=== PATIENT | male | born 1945 | race Caucasian/White ===

== ENCOUNTER 2018-11-15 12:19 | Emergency (ER) | payer OTHER ==
[~2018-11-15] VITALS: Ht 180.3 cm; Wt 85.0 kg
[2018-11-15] MEDS ORDERED: OXYC-517 PO (12:29)
[2018-11-15] MEDS ORDERED: SPIR1CAP INH (12:29)
[2018-11-15] MEDS ORDERED: PROAAER10 INH (12:29)
[2018-11-15] MEDS ORDERED: PRED1TABL PO (12:29)
[2018-11-15] MEDS ORDERED: ASPI1TAB15 PO (12:29)
[2018-11-15] MEDS ORDERED: HYDR-643 PO (12:29)
[2018-11-15] MEDS ORDERED: NS 1,000 ML IV SCH (13:07)
[2018-11-15 13:59] LABS: BASO % 0.2 % (0.0-1.0); HEMATOCRIT 44.8 % (42.0-52.0); HEMOGLOBIN 15.1 g/dl (13.5-17.5); LYMPH # 0.3 10^3/uL (1.5-4.5); LYMPH % 1.7 % (24.0-44.0); MEAN CORPUSCULAR HEMOGLOBIN 31.7 pg (27.0-33.0); MEAN CORPUSCULAR HGB CONC 33.7 g/dl (32.0-36.5); MEAN CORPUSCULAR VOLUME 94.1 fl (80.0-96.0); MONO # 0.6 10^3/uL (0.0-0.8); MONO % 3.4 % (0.0-5.0); NEUTROPHILS # 16.1 10^3/uL (1.8-7.7); PLATELET COUNT, AUTOMATED 198 10^3/uL (150-450); RED BLOOD COUNT 4.76 10^6/uL (4.30-6.10); WHITE BLOOD COUNT 17.2 10^3/uL (4.0-10.0)
[2018-11-15 14:34] LABS: ALBUMIN 2.7 GM/DL (3.2-5.2); ALT/SGPT 527 U/L (12-78); BILIRUBIN,TOTAL 2.2 MG/DL (0.2-1.0); BLOOD UREA NITROGEN 17 MG/DL (7-18); CALCIUM LEVEL 9.9 MG/DL (8.8-10.2); CARBON DIOXIDE LEVEL 26 MEQ/L (21-32); CHLORIDE LEVEL 99 MEQ/L (98-107); CPK CREATINE PHOSPHOKINASE 533 U/L (39-308); CREATININE FOR GFR 0.65 MG/DL (0.70-1.30); FREE T4 1.39 NG/DL (0.76-1.46); GLOMERULAR FILTRATION RATE > 60.0 (>42); GLUCOSE, FASTING 157 MG/DL (70-100); MB/CK RELATIVE INDEX 0.64 (< OR =4); NT-PRO BNP 1554 PG/ML (<125); POTASSIUM SERUM 3.6 MEQ/L (3.5-5.1); SODIUM LEVEL 135 MEQ/L (136-145); TOTAL PROTEIN 6.2 GM/DL (6.4-8.2); TROPONIN I 0.37 NG/ML (< 0.10)
--- NOTE | 2018-11-15 14:48 | REP ---
PORTABLE CHEST: Single portable view of the chest is performed and compared to a prior study of 03/29/2013. There is mild bibasilar interstitial fibrotic change. There is no acute infiltrate or pulmonary edema. The heart is not enlarged. There is mild calcification of the thoracic aorta. Mediastinal silhouette is unchanged. Right central venous catheter is seen with the tip in the superior vena cava. IMPRESSION: Mild chronic changes without acute infiltrate. Electronically Signed by Kaden Mack MD 11/15/2018 04:09 P
[2018-11-15 15:45] VITALS: BP 124/76
--- NOTE | 2018-11-16 06:23 | ECGEPIP ---
Stationary ECG Study [facility] - ED Test Date: 2018-11-15 Pat Name: LORENZA LUNA Department: Room: - Gender: M [employer]ap Manager: : [id number] Requested By: Beatrice Kingston Order Number: [id number] Reading MD: Alberto Hankins Measurements Intervals [place] Rate: 108 P: 74 ID: [id number] QRS: -22 QRSD: 90 T: 71 QT: 333 QTc: 448 Interpretive Statements SINUS TACHYCARDIA INFERIOR MYOCARDIAL INFARCTION, PROBABLY OLD NO PRIORS FOR COMPARISON Electronically Signed On 11-16-2018 6:23:02 EDT by Alberto Hankins
== END 2018-11-15 15:52 | disposition home or self-care (01) ==
LOC: M ED 12:19
DX: R00.0 Tachycardia, unspecified (principal); R74.8 Abnormal levels of other serum enzymes; C22.8 Malignant neoplasm of liver, primary, unspecified as to type; Z87.891 Personal history of nicotine dependence; Z88.0 Allergy status to penicillin; Z91.048 Other nonmedicinal substance allergy status; Z79.899 Other long term (current) drug therapy; Z79.52 Long term (current) use of systemic steroids; Z79.82 Long term (current) use of aspirin